=== PATIENT | male | born 1940 | race Caucasian/White ===

== ENCOUNTER 2020-01-30 09:56 | Outpatient (CLI) | payer OTHER, MEDICARE ==
[~2020-01-30 09:56] MED LIST: METO25TA3 PO; PHEN-890 PO; SULF1TAB48 PO
[2020-01-30 11:04] LABS: BILIRUBIN,URINE NEGATIVE (NEGATIVE); BLOOD, URINE 3+ (NEGATIVE); CLARITY/URINE CLEAR (CLEAR); COLOR,URINE YELLOW (YELLOW); GLUCOSE,URINE NEGATIVE (NEGATIVE); KETONES,URINE NEGATIVE (NEGATIVE); LEUKOCYTE ESTERASE ,URINE TRACE (NEGATIVE); NITRITE, URINE NEGATIVE (NEGATIVE); PH,URINE 7.5 (5.0-8.0); PROTEIN URINE TRACE (NEGATIVE); UROBILINOGEN,URINE 0.2 (0.2-1.0)
[2020-01-30 11:12] LABS: BACTERIA,URINE FEW /HPF (None Seen); MUCUS,URINE 1+ /LPF (None Seen); RBC,URINE 20-50 /HPF (0-3)
[2020-01-30 11:18] LABS: ALANINE AMINOTRANSFERASE 22 U/L (12-78); ANION GAP 6 (5-15); ASPARTATE AMINOTRANSFERASE 16 U/L (10-37); CALCIUM 8.9 mg/dL (8.4-11.0); CHLORIDE 102 mmol/L (98-107); CHOLESTEROL 134 mg/dL (<200); CREATININE 1.52 mg/dL (0.55-1.30); GLUCOSE 106 mg/dL (70-99); HDL CHOLESTEROL 59 mg/dL (>45); LDL CHOLESTEROL 70 mg/dL (<100); POTASSIUM 4.6 mmol/L (3.5-5.1); SODIUM SERUM 133 mmol/L (136-145); TOTAL BILIRUBIN 1.6 mg/dL (0.0-1.0); TRIGLYCERIDES 88 mg/dL (30-150); UREA NITROGEN, BLOOD 17 mg/dL (8-21)
== END 2020-01-30 20:52 | disposition home or self-care (01) ==
LOC: SLB 09:56
PROVIDERS: ATTEND Internal Medicine Cardiovascular Disease
DX: I13.0 Hypertensive heart and chronic kidney disease with heart failure and stage 1 through stage 4 chronic kidney disease, or unspecified chronic kidney disease (principal); N18.9 Chronic kidney disease, unspecified; E11.22 Type 2 diabetes mellitus with diabetic chronic kidney disease; I50.9 Heart failure, unspecified; I42.0 Dilated cardiomyopathy; I49.5 Sick sinus syndrome; J44.9 Chronic obstructive pulmonary disease, unspecified; N40.1 Benign prostatic hyperplasia with lower urinary tract symptoms; E03.9 Hypothyroidism, unspecified; I35.0 Nonrheumatic aortic (valve) stenosis; K21.00 Gastro-esophageal reflux disease with esophagitis, without bleeding; N32.0 Bladder-neck obstruction; R30.0 Dysuria; R31.9 Hematuria, unspecified
CPT/HCPCS: 36415; 80053; 80061; 81000-TC; 87086

== ENCOUNTER 2020-11-30 00:09 | Emergency (ER) | payer OTHER, MEDICARE ==
[~2020-11-30] VITALS: Ht 167.6 cm; Wt 63.5 kg
[~2020-11-30 00:09] MED LIST changes: +AMOX-520 PO; +ASCO500T20 PO; +DITXL5 PO; +DONE10TA44 PO; +ENZY1CAP5 PO; +MAGN400T10 PO; +MULT-950 PO; +NAPR-686 PO; +SAW/1TAB2 PO
[2020-11-30 00:15] VITALS: BP_SYST 123
[2020-11-30 01:10] LABS: BASOPHILS # (AUTO) 0.1 K/uL (0.0-0.2); EOSINOPHILS # (AUTO) 0.1 K/uL (0.0-0.4); EOSINOPHILS % (AUTO) 1.3 % (0.0-4.0); HEMATOCRIT 26.4 % (36-54); HEMOGLOBIN 8.7 g/dL (14.0-18.0); LYMPHOCYTES # (AUTO) 3.1 K/uL (1.0-5.5); LYMPHOCYTES % (AUTO) 49.4 % (20.5-51.5); MEAN CORPUSCULAR HEMOGLOBIN 36 pg (27-31); MEAN CORPUSCULAR HGB CONC 33 % (32-36); MEAN CORPUSCULAR VOLUME 111 fL (79.0-98.0); MONOCYTES # (AUTO) 0.5 K/uL (0.0-1.0); MONOCYTES % (AUTO) 8.5 % (1.7-9.3); NEUTROPHILS # (AUTO) 2.5 K/uL (1.8-7.7); NEUTROPHILS % (AUTO) 39.8 % (40.0-70.0); PLATELET COUNT (AUTO) 445 K/uL (130-430); RED BLOOD CELL COUNT(AUTO) 2.39 MIL/uL (4.2-6.2); RED CELL DISTRIBUTION WIDTH 18.8 % (9.0-15.0); WHITE BLOOD COUNT (AUTO) 6.3 K/uL (4.8-10.8)
[2020-11-30 01:24] LABS: ANION GAP 8 (5-15); CALCIUM 8.7 mg/dL (8.4-11.0); CHLORIDE 103 mmol/L (98-107); CREATININE 2.13 mg/dL (0.55-1.30); GLUCOSE 112 mg/dL (70-99); POTASSIUM 4.1 mmol/L (3.5-5.1); SODIUM SERUM 139 mmol/L (136-145); UREA NITROGEN, BLOOD 18 mg/dL (8-21)
[2020-11-30 01:27] LABS: PROTHROMBIN TIME 10.4 SECS (9.5-12.5)
[2020-11-30 01:29] LABS: ALANINE AMINOTRANSFERASE 34 U/L (12-78); ALBUMIN 3.7 g/dL (3.4-4.8); ASPARTATE AMINOTRANSFERASE 29 U/L (10-37); TOTAL BILIRUBIN 0.7 mg/dL (0.0-1.0)
[2020-11-30] MEDS ORDERED: PANTOPRAZOLE SODIUM 40 MG/VIAL (PROTONIX) IVP ONE (02:00)
[2020-11-30] MEDS ORDERED: PANTOPRAZOLE SODIUM 40 MG TAB ONE (02:38)
[2020-11-30 03:10] VITALS: BP_SYST 120
== END 2020-11-30 03:10 | disposition home or self-care (01) ==
LOC: SED 00:09
DX: R07.89 Other chest pain (principal); D64.9 Anemia, unspecified; I10 Essential (primary) hypertension; I48.91 Unspecified atrial fibrillation; E03.9 Hypothyroidism, unspecified
CPT/HCPCS: 36415; 71045; 80053; 84484; 85025; 85610-TC; 85730-TC; 93005; 96374; 99285